=== PATIENT | male | born 1960 | race Caucasian/White ===

== ENCOUNTER 2018-12-17 16:21 | Emergency (ER) | payer BC ==
[2018-12-17] MEDS ORDERED: Ibuprofen TAB* 600 MG PO ONE (16:37)
[2018-12-17] MEDS ORDERED: Ipratropium 0.5MG/2.5ML NEB* 0.5 MG/2.5 ML NEB.SOLN INH ONE (17:36)
[2018-12-17] MEDS ORDERED: Albuterol 2.5 MG/3 ML NEB.SOL* (0.083%) INH ONE (17:36)
[2018-12-17] MEDS ORDERED: NS 0.9% 1000 ML** 1,000 ML IV ONE (17:37)
--- NOTE | 2018-12-17 17:41 | UC ---
Shortness of Breath HPI - HPI Summary HPI Summary: 4 DAYS OF PROGRESSIVELY WORSENING SHORTNESS OF BREATH AND FEVER. IS HAVING SOME HEADACHE AND A MILD COUGH. NO WHEEZE. NO SIGNIFICANT MEDICAL HISTORY. NOT A SMOKER. NO EXTENDED TRAVEL PRIOR TO ONSET OF SX. WENT CAMPING OVER THE WEEKEND DESPITE FEELING UNWELL AND SX CONTINUED TO WORSEN. NOW UNABLE TO SPEAK IN FULL SENTENCES WITHOUT BECOMING SOB. ACCOMPANIED BY HIS . - History of Current Complaint Chief Complaint: UCRespiratory Stated Complaint: SOB Time Seen by Provider: 12/17/18 16:28 Hx Obtained From: Patient Onset/Duration: Gradual Onset, Lasting Days, Still Present Timing: Constant Current Severity: Moderate Dyspnea At: Rest Aggravating Factors: Movement Alleviating Factors: Nothing Associated Signs & Symptoms: Positive: Cough (Nonproductive), Fever, Chills. Negative: Wheezing, Chest Pain w/Cough, Edema - Allergy/Home Medications Allergies/Adverse Reactions: Allergies Allergy/AdvReac Type Severity Reaction Status Date / Time No Known Allergies Allergy Verified 12/17/18 16:33 Home Medications: Home Medications Ibuprofen/Pseudoephedrine HCl [Advil Cold & Sinus Caplet] 1 each PO PRN [History] PMH/Surg Hx/FS Hx/Imm Hx Previously Healthy: Yes - Surgical History Surgical History: None - Family History Known Family History: Negative: Cardiac Disease, Hypertension, Diabetes, Respiratory Disease Family History: CANCER - MOM - Social History Alcohol Use: Daily Substance Use Type: None Smoking Status (MU): Never Smoked Tobacco Review of Systems All Other Systems Reviewed And Are Negative: Yes Constitutional: Positive: Fever, Chills ENT: Positive: Negative Respiratory: Positive: Shortness Of Breath, Cough Cardiovascular: Positive: Negative Gastrointestinal: Positive: Negative Neurological: Positive: Headache Physical Exam Triage Information Reviewed: Yes Appearance: No Pain Distress, Well-Nourished, Ill-Appearing - VISIBLY WORKING TO BREATHE Vital Signs: Initial Vital Signs Temp 101.3 F 12/17/18 16:27 Pulse 119 12/17/18 16:27 Resp 22 12/17/18 16:27 BP 138/77 12/17/18 16:27 Pulse Ox 95 12/17/18 16:27 Vital Signs Reviewed: Yes Eyes: Positive: Conjunctiva Inflamed ENT: Positive: Hearing grossly normal Neck: Positive: Supple Respiratory: Positive: Lungs clear, Respiratory distress. Negative: Wheezing Cardiovascular: Positive: Tachycardia Abdomen Description: Positive: Nontender, Soft Musculoskeletal: Positive: No Edema Neurological: Positive: Alert, Muscle Tone Normal Psychological: Positive: Normal Response To Family, Age Appropriate Behavior Skin: Negative: Rashes Diagnostics - EKG Cardiac Rate: Tachycardia - 120BPM Cardiac Rhythm: Sinus: Normal Ectopy: None ST Segment: Normal Shortness of Breath Dx - Course Course Of Treatment: PATIENT WITH VISIBLE RESPIRATORY DISTRESS ON EXAM. CHEST X-RAY WITH SOME POSSIBLE ATELECTASIS VERSUS SCARRING BUT OTHERWISE UNREMARKABLE. POC GLUCOSE UNREMARKABLE AT 89. EKG SHOWS SINUS TACHYCARDIA. AMBULATORY O2 SAT 91%. 95% AT REST ON ROOM AIR. PATIENT REQUIRES HIGHER LEVEL OF CARE THAN WAS AVAILABLE IN THE . [place] [facility] [place] FOR FURTHER EVALUATION AND TREATMENT. NEB TX STARTED. - Differential Dx/Diagnosis Provider Diagnosis: Respiratory distress - Physician Notification/Consults Discussed Patient Care With: Delfino Cesar - [place] [facility] Time Discussed With Above Provider: 17:35 Instructed by Provider To: MD Will See In ED Discharge - Sign-Out/Discharge Documenting (check all that apply): Patient Departure All imaging exams completed and their final reports reviewed: Yes - Discharge Plan Condition: Fair Disposition: TRANS HIGHER LVL OF CARE FAC Patient Education Materials: Shortness of Breath (ED) Referrals: Diane Pierce MD [Medical Doctor] - - Billing Disposition and Condition Condition: FAIR Disposition: Trans Higher Lvl of Care Fac
[2018-12-17 18:18] VITALS: BP 112/68
== END 2018-12-17 18:00 | disposition short-term general hospital (02) ==
LOC: UCEAST 16:21
DX: R06.03 Acute respiratory distress (principal)
CPT/HCPCS: 71046; 93005; 99214; A9270-GY; G0463

== ENCOUNTER 2018-12-17 18:10 | Emergency (ER) | payer BC ==
--- NOTE | 2018-12-17 19:25 | ED ---
Shortness of Breath - HPI Summary HPI Summary: This patient is a 58 year old M presenting to ED with a chief complaint of SOB on exertion since today. Patient has been sick since four days ago with flu- like symptoms. His symptoms began with CORTEZ, sinus congestion, and head cold on 03/24 at night. On 12/14/18 he had fever, dizziness, and coughing. Today, he had difficulty breathing and coughing. Patient was seen by [facility] where they performed a CXR. The patient rates the pain 0/10 in severity. Symptoms aggravated by nothing. Symptoms alleviated by nothing. Patient reports sore throat, decreased fluid and oral intake. He has taken Ibuprofen and Sudafed. - History of Current Complaint Chief Complaint: EDShortnessOfBreath Time Seen by Provider: 12/17/18 19:12 Hx Obtained From: Patient Onset/Duration: Gradual Onset, Lasting Days - Since 12/13/18, Still Present, Worse Since Timing: Constant Current Severity: Mild Dyspnea At: Exertion Aggravating Factors: Nothing Alleviating Factors: Nothing Associated Signs & Symptoms: Cough (Nonproductive), Fever, Nasal Congestion, Dizzy - Allergy/Home Medications Allergies/Adverse Reactions: Allergies Allergy/AdvReac Type Severity Reaction Status Date / Time No Known Allergies Allergy Verified 12/17/18 16:33 PMH/Surg Hx/FS Hx/Imm Hx Endocrine/Hematology History: Denies: Hx Diabetes Cardiovascular History: Denies: Hx Hypertension - Surgical History Surgery Procedure, Year, and Place: Denies Infectious Disease History: No Infectious Disease History: Denies: History Other Infectious Disease, Traveled Outside the [place] in Last 30 Days - Family History Known Family History: Negative: Cardiac Disease, Hypertension, Diabetes, Respiratory Disease Family History: CANCER - MOM - Social History Alcohol Use: None Hx Substance Use: No Substance Use Type: Reports: None Hx Tobacco Use: No Smoking Status (MU): Never Smoked Tobacco Review of Systems Positive: Fever ENT: Other - Sinus congestion Positive: Sore Throat Positive: Shortness Of Breath, Cough Gastrointestinal: Other - Decreased fluid and oral intake Neurological: Other - Dizziness Positive: Headache All Other Systems Reviewed And Are Negative: Yes Physical Exam - Summary Physical Exam Summary: VITAL SIGNS: Reviewed. GENERAL: Patient is a well-developed and nourished male who is lying comfortable in the stretcher. Patient is not in any acute respiratory distress. HEAD AND FACE: No signs of trauma. No ecchymosis, hematomas or skull depressions. No sinus tenderness. EYES: PERRLA, EOMI x 2, No injected conjunctiva, no nystagmus. EARS: Hearing grossly intact. Ear canals and tympanic membranes are within normal limits. MOUTH: Oropharynx within normal limits. NECK: Supple, trachea is midline, no adenopathy, no JVD, no carotid bruit, no c- spine tenderness, neck with full ROM CHEST: Symmetric, no tenderness at palpation LUNGS: Fine rales in both bases CVS: Regular rate and rhythm, S1 and S2 present, no murmurs or gallops appreciated. ABDOMEN: Soft, non-tender. No signs of distention. No rebound no guarding, and no masses palpated. Bowel sounds are normal. EXTREMITIES: FROM in all major joints, no edema, no cyanosis or clubbing. NEURO: Alert and oriented x 3. No acute neurological deficits. Speech is normal and follows commands. SKIN: Dry and warm Triage Information Reviewed: Yes Vital Signs On Initial Exam: Initial Vitals Temp Pulse Resp BP Pulse Ox 99.3 F 117 36 137/83 97 12/17/18 18:13 12/17/18 18:13 12/17/18 18:13 12/17/18 18:13 12/17/18 18:13 Vital Signs Reviewed: Yes Diagnostics - Vital Signs Vital Signs Temp Pulse Resp BP Pulse Ox 12/17/18 18:13 99.3 F 117 36 137/83 97 - Laboratory Result Diagrams: 12/17/18 20:10 12/17/18 20:10 Lab Statement: Any lab studies that have been ordered have been reviewed, and results considered in the medical decision making process. - Radiology CXR Radiology Interpretation Completed By: Radiologist Summary of Radiographic Findings: CXR at Urgent Care today: MINIMAL LINEAR ATELECTASIS VERSUS PLEURAL PARENCHYMAL SCARRING OF THE LEFT LUNG BASE. Dr. Valle has reviewed this radiology report. - CT Chest CT Interpretation Completed By: Radiologist Summary of CT Findings: No CT findings to correlate with patient's symptomatology. Dr. Valle has reviewed this radiology report. - EKG 1935 Cardiac Rate: NL - 109 BPM EKG Rhythm: Sinus Rhythm Summary of EKG Findings: NSR 109 BPM, normal axis, S1 Q3 T3 pattern. Re-Evaluation - Re-Evaluation First Eval Re-Evaluation Time: :34 Comment: Discussed results with patient. Patient agrees to be transferred to [facility] for plasmapheresis for his TTP. Second Eval Re-Evaluation Time: 23:56 Comment: Updated patient on transfer situation. Patient understands and agrees with the plan to be transferred to [facility]. Course/Dx - Course Course Of Treatment: This patient is a 58 year old M presenting to ED with a chief complaint of SOB on exertion since today. CXR at Urgent Care revealed MINIMAL LINEAR ATELECTASIS VERSUS PLEURAL PARENCHYMAL SCARRING OF THE LEFT LUNG BASE. In the ED course, patient received Tylenol, Motrin, Levaquin, Vibramycin, and fluids. EKG at 1936 revealed NSR 109 BPM, normal axis, S1 Q3 T3 pattern. Blood work obtained. Chest CT revealed no CT findings to correlate with patient' s symptomatology. Transfer center called at 2140. However, [facility] they do not have any beds to accept the patient. Therefore, I will try [facility]. At 2315, consulted with Dr. Cesar, packing attendant conveyor line battery charger at [facility] who stated that they will consult the hospitalist and medical services there. At 2352, discused patient case with Dr. Sims, hospitalist at [facility], who accepted the patient for transfer to ER. Patient will be transferred to [facility] ED with dx of TTP. Patient understands and agrees with this plan. - Diagnoses Provider Diagnoses: TTP (thrombotic thrombocytopenic purpura) - Physician Notifications Discussed Care of Patient With: Aric Fernandez Time Discussed With Above Provider: 21:22 Instructed by Provider To: Other - Discussed patient case with Dr. Fernandez, packing attendant, who agrees that the patient has TTP and that the patient needs to be transferred for plasmapheresis. At 2315, consulted with Dr. Cesar, packing attendant conveyor line battery charger at [facility] who stated that they will consult the hospitalist and medical services there. At 235, discused patient case with Dr. Sims, hospitalist at [facility], who accepted the patient for transfer. Discharge - Sign-Out/Discharge Documenting (check all that apply): Patient Departure - Transfer Patient Received Moderate/Deep Sedation with Procedure: No - Discharge Plan Condition: Good Disposition: TRANS HIGHER LVL OF CARE FAC Referrals: No Primary Care Phys,NOPCP [Primary Care Provider] - - Billing Disposition and Condition Condition: GOOD Disposition: Trans Higher Lvl of Care Fac - Attestation Statements Document Initiated by Scribe: Yes Documenting Scribe: Lee Russell Provider For Whom Deena is Documenting (Include Credential): Matthew Valle MD Scribe Attestation: ILee, scribed for Matthew Valle MD on 12/18/18 at 0032. Scribe Documentation Reviewed: Yes Provider Attestation: The documentation as recorded by the Lee dias accurately reflects the service I personally performed and the decisions made by me, Matthew Valle MD Status of Scribe Document: Viewed
[2018-12-17] MEDS ORDERED: NS 0.9% 1000 ML** 2,400 ML IV ONE (19:30)
[2018-12-17] MEDS ORDERED: Acetaminophen TAB* 325 MG PO ONE (19:32)
[2018-12-17] MEDS ORDERED: Ibuprofen TAB* 400 MG PO ONE (19:33)
[2018-12-17] MEDS ORDERED: Levofloxacin 750 MG IVPREMIX(* 750 MG/150 ML BAG IVPB ONE (19:33)
[2018-12-17 20:31] LABS: Hematocrit 40 % (42-52); Hemoglobin 13.9 g/dL (14.0-18.0); Mean Corpuscular HGB Conc 35 g/dL (31-36); Mean Corpuscular Hemoglobin 33 pg (27-31); Mean Corpuscular Volume 93 fL (80-94); Red Blood Count 4.24 10^6 /uL (4.18-5.48); Red Cell Distribution Width 14 % (10-15); White Blood Count 6.8 10^3/uL (3.5-10.8)
[2018-12-17 20:31] LABS: Rapid Strep Molecular Negative (Negative)
[2018-12-17 20:37] LABS: Activated Partial Thrombo Time 37.7 seconds (26.0-38.0); INR 1.12 (0.82-1.09)
[2018-12-17 20:38] LABS: Influenza A Molecular NEGATIVE (Negative); Influenza B Molecular NEGATIVE (Negative)
[2018-12-17 20:43] LABS: Albumin/Globulin Ratio 1.2 (1-3); BUN/Creatinine Ratio 9.2 (8-20); C Reactive Protein 242.43 mg/L (<8.01); Calcium 8.1 mg/dL (8.6-10.3); EGFR African American 17.5 (>60); EGFR Non-African American 14.5 (>60); Globulin 2.6 g/dL (2-4); Potassium 3.9 mmol/L (3.5-5.0); Total Bilirubin 2.3 mg/dL (0.2-1.0); Total Protein 5.6 g/dL (6.4-8.9)
[2018-12-17 20:46] LABS: Troponin I 0.03 ng/mL (<0.04)
[2018-12-17 21:02] LABS: ABS Lymphocytes 0.2 10^3/ul (1.0-4.8); ABS Monocytes 0.2 10^3/ul (0-0.8); ABS Neutrophils 6.4 10^3/ul (1.5-7.7); Lymphocyte % 2.5 %; Mean Platelet Volume 10.5 fL (7.4-10.4); Platelet Count 27 10^3/uL (150-450)
[2018-12-17] MEDS ORDERED: DOXYcycline CAP(*) 100 MG PO ONE (21:07)
[2018-12-17 21:23] LABS: Corrected Retic Count 0.4 % (0.5-1.5); Hematocrit for Retic CNT 40 % (42-52); Immature Retic Fraction 0.17; RBC Retic Count 4.23 10^6/uL (4.18-5.48)
[2018-12-18 00:04] VITALS: BP 124/84
== END 2018-12-18 00:14 | disposition short-term general hospital (02) ==
LOC: ED 18:10
DX: M31.1 Thrombotic microangiopathy (principal); R06.02 Shortness of breath; R05 Cough; R50.9 Fever, unspecified; R09.81 Nasal congestion; R42 Dizziness and giddiness; J02.9 Acute pharyngitis, unspecified; R00.0 Tachycardia, unspecified
CPT/HCPCS: 36415; 71250; 80053; 82803; 83605; 83615; 83880; 83930; 84484; 85025; 85045; 85060; 85379; 85610; 85730; 86140; 86617; 86618; 86666; 87040; 87150; 87651; 93005; 96361; 96365; 99285; A9270-GY

== ENCOUNTER 2019-06-16 09:19 | Emergency (ER) | payer BC ==
[2019-06-16 09:31] VITALS: BP 129/91
--- NOTE | 2019-06-16 09:44 | UC ---
Eye Complaint HPI - HPI Summary HPI Summary: right eye redness x 1 day yellow discharge, irritation , no eye pain , no change in vision, no photophobia - History of Current Complaint Chief Complaint: UCEye Stated Complaint: EYE COMPLAINT Time Seen by Provider: 06/16/19 09:25 Hx Obtained From: Patient Onset/Duration: Gradual Onset, Lasting Days - 1, Still Present Timing: Constant Severity Initially: Moderate Severity Currently: Moderate Pain Intensity: 0 Location of Injury: Conjunctiva - right Aggravating Factor(s): Nothing Alleviating Factor(s): Nothing Associated Signs And Symptoms: Positive: Drainage (Clear), Drainage (Purulent). Negative: Photophobia, Vision Impairment Bilateral, Vision Impairment Right, Vision Impairment Left, Fever, Swelling - Allergies/Home Medications Allergies/Adverse Reactions: Allergies Allergy/AdvReac Type Severity Reaction Status Date / Time No Known Allergies Allergy Verified 06/16/19 09:31 PMH/Surg Hx/FS Hx/Imm Hx Previously Healthy: Yes - Surgical History Surgical History: None Surgery Procedure, Year, and Place: Denies - Family History Known Family History: Negative: Cardiac Disease, Hypertension, Diabetes, Respiratory Disease Family History: CANCER - MOM - Social History Alcohol Use: Daily Substance Use Type: None Smoking Status (MU): Never Smoked Tobacco Review of Systems All Other Systems Reviewed And Are Negative: Yes Eyes: Positive: Drainage - right, Eye Redness - right. Negative: Blurred Vision , Diplopia, Photophobia Is Patient Immunocompromised?: No Physical Exam Triage Information Reviewed: Yes Appearance: Well-Appearing, No Pain Distress, Well-Nourished Vital Signs: Initial Vital Signs Temp 97.7 F 06/16/19 09:25 Pulse 84 06/16/19 09:25 Resp 79 06/16/19 09:25 BP 129/91 06/16/19 09:25 Pulse Ox 100 06/16/19 09:25 Vital Signs Reviewed: Yes Eye Exam: Normal Eyes: Positive: Conjunctiva Inflamed - right eye, Discharge - yellow discharge ENT: Positive: Normal ENT inspection, Hearing grossly normal, Pharynx normal Neck exam: Normal Neck: Positive: Supple, Nontender, No Lymphadenopathy Respiratory: Positive: Chest non-tender, Lungs clear, Normal breath sounds Cardiovascular: Positive: RRR, No Murmur, Pulses Normal Eye Complaint Course/Dx - Differential Dx/Diagnosis Provider Diagnosis: Conjunctivitis Discharge ED - Sign-Out/Discharge Documenting (check all that apply): Patient Departure All imaging exams completed and their final reports reviewed: No Studies - Discharge Plan Condition: Stable Disposition: HOME Prescriptions: Tobramycin 0.3% OPHTH.NINI* 1 drop RIGHT EYE Q4H #1 btl Patient Education Materials: Conjunctivitis (ED) Referrals: No Primary Care Phys,NOPCP [Primary Care Provider] - If Needed Additional Instructions: follow up if having eye pain / change in vision/ photophobia - Billing Disposition and Condition Condition: STABLE Disposition: Home
== END 2019-06-16 09:47 | disposition home or self-care (01) ==
LOC: UCEAST 09:19
DX: H10.9 Unspecified conjunctivitis (principal)
CPT/HCPCS: 99212; G0463